=== PATIENT | female | born 1985 | race Caucasian/White ===

== ENCOUNTER 2016-09-28 22:34 | Emergency (ER) | payer MEDICAID ==
[~2016-09-28] VITALS: Ht 160 cm; Wt 68.0 kg
[~2016-09-28 22:34] MED LIST: CALC600T5 PO; CALCIUM BU; FERR240T9 PO; LORA-441 PO; PREN1TAB17 PO
[2016-09-28 22:39] VITALS: Ht 160 cm; Wt 68.0 kg
[2016-09-28] MEDS ORDERED: IBUP400T22 PO (23:39)
--- NOTE | 2016-09-28 23:50 | ERA ---
ER Documentation Chief Complaint Date/Time DATE: 09/28/16 TIME: 23:45 Chief Complaint chest wall pain radaiting to right shoulder x 2 months HPI This is an otherwise healthy 31-year-old Pakistani-speaking female presenting with 2-3 months of right shoulder pain that is worse with movement. Patient describes the pain as dull and feels like there is "air underneath the shoulder ". Denies relation to food, abdominal pain, shortness of breath, chest pain, diaphoresis, similar symptoms in the past, aggravating or relieving factors or trauma. 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 ROS All systems reviewed and are negative except as per history of present illness. Medications Home Meds Active Scripts Ibuprofen* (Motrin*) 400 Mg Tab, 400 MG PO Q6, #30 TAB Prov:NISHI GOTTLIEB PA-C 09/28/16 Lorazepam* (Ativan*) 0.5 Mg Tablet, 0.5 MG PO Q8H Y for ANXIETY, #6 TAB Prov:KANA DAHL DO 12/16/15 Reported Medications [Calcium] No Conflict Check, BU DAILY 09/20/13 Ferrous Gluconate (Iron) 1 Tab Tablet, 1 TAB PO DAILY 09/20/13 Vit-Iron Fumarate-FA ( Tablet) 1 Each Tablet, 1 EACH PO DAILY 09/20/13 Calcium Carbonate (CALCIUM) 600 Mg Tablet, 600 MG PO DAILY 06/04/13 Allergies Allergies: Coded Allergies: No Known Allergy (Unverified , 09/20/13) PMhx/Soc Medical and Surgical Hx: pt denies Medical Hx, pt denies Surgical Hx Hx Alcohol Use: No Hx Substance Use: No Hx Tobacco Use: No Smoking Status: Never smoker Physical Exam Vitals Vital Signs Date Time Temp Pulse Resp B/P Pulse Ox O2 Delivery O2 Flow Rate FiO2 09/28/16 22:39 98.2 88 20 126/70 100 Physical Exam Const: Well-appearing 31-year-old female in no acute distress Head: Atraumatic Eyes: Normal Conjunctiva ENT: Normal External Ears, Nose and Mouth. Neck: Full range of motion..~ No meningismus. Resp: Clear to auscultation bilaterally Cardio: Regular rate and rhythm, no murmurs Abd: Soft, non tender, non distended. Normal bowel sounds Skin: No petechiae or rashes Back: No midline or flank tenderness Ext: Negative crossover sign. No impingement. Negative empty can test sign. No pain reproduced with range of motion in any direction. Full range of motion in all directions. No cyanosis, or edema no step-off noted at the AC joint. Neur: Awake and alert Psych: Normal Mood and Affect Procedures/MDM This is a 31-year-old female presenting with a chief complaint of right shoulder pain as described in the history and physical examination. Patient is denying any aggravating or alleviating factors. Physical exam was unremarkable. Range of motion is full and no pain was elicited. ECG was taken to rule out acute coronary syndrome and read by me as good baseline with normal axis, no ST wave depressions or elevations, no T-wave inversions, regular rate and rhythm. The ECG was read by my attending as well as unremarkable with normal sinus rhythm. I presented my case to the attending Dr. Hylton who has agreed with my assessment and plan. The plan will consist of outpatient ibuprofen for possible rotator cuff syndrome. A list of outpatient clinics has been provided so the patient can follow-up with PCP for possible referral to a specialist. At this time I have little suspicion for neurovascular compromise, or bony pathology. Patient's vitals are stable and her current condition is appropriate for discharge. Patient will be discharged with discharge instructions return precautions were Departure Diagnosis: Primary Impression: Rotator cuff syndrome of right shoulder Condition: Stable Patient Instructions: Understanding Rotator Cuff Injuries Referrals: COMMUNITY CLINICS YOU HAVE RECEIVED A MEDICAL SCREENING EXAM AND THE RESULTS INDICATE THAT YOU DO NOT HAVE A CONDITION THAT REQUIRES URGENT TREATMENT IN THE EMERGENCY DEPARTMENT. FURTHER EVALUATION AND TREATMENT OF YOUR CONDITION CAN WAIT UNTIL YOU ARE SEEN IN YOUR DOCTORS OFFICE WITHIN THE NEXT 1-2 DAYS. IT IS YOUR RESPONSIBILITY TO MAKE AN APPOINTMENT FOR FOLOW-UP CARE. IF YOU HAVE A PRIMARY DOCTOR --you should call your primary doctor and schedule an appointment IF YOU DO NOT HAVE A PRIMARY DOCTOR YOU CAN CALL OUR PHYSICIAN REFERRAL HOTLINE AT IF YOU CAN NOT AFFORD TO SEE A PHYSICIAN YOU CAN CHOSE FROM THE FOLLOWING [facility] [address] [facility] [address] [facility]. [facility] [address] [facility] [address] [facility]. [facility] [address] [facility]. [facility] [address] Additional Instructions: Follow up with your PCP within the next 1-3 days for a more thorough evaluation and a possible referral to a specialist. Return the the emergency department immediately if symptoms worsen or change. If you have any questions regarding medications, ask your pharmacist or us before you leave. If any adverse reactions occur while taking your medications, discontinue the treatment and return to the emergency department immediately. Take your medications as directed, and complete the entire course of treatment. NISHI GOTTLIEB PA-C Sep 28, 2016 23:50
[2016-09-29 00:31] VITALS: BP 116/60; PULSE 64; RESP 17; TEMP 98.4
== END 2016-09-29 00:32 | disposition home or self-care (01) ==
LOC: FTE 22:34
DX: M75.101 Unspecified rotator cuff tear or rupture of right shoulder, not specified as traumatic (principal)
CPT/HCPCS: 93005; Z7502; 99283

== ENCOUNTER 2018-03-06 19:55 | Emergency (ER) | END 2018-03-06 20:59 | disposition home or self-care (01) ==

== ENCOUNTER 2018-07-25 11:49 | Emergency (ER) | payer MEDICAID ==
[~2018-07-25] VITALS: Ht 162.6 cm; Wt 64.8 kg
[~2018-07-25 11:49] MED LIST changes: +CEPH-443 PO; +IBUP-1561 PO; +PHEN-538 PO
[2018-07-25 11:53] VITALS: BP 145/85; PULSE 64; RESP 17; Ht 162.6 cm; Wt 64.8 kg
[2018-07-25] MEDS ORDERED: ORA20G7 BUCCAL (12:45)
[2018-07-25] MEDS ORDERED: AMOX500C2 PO (12:46)
--- NOTE | 2018-07-25 12:49 | ERD ---
ER Documentation Chief Complaint Chief Complaint MOUTH BLISTERES AND INTERMITTANT FEVER HPI Patient is a 33-year-old female who who presents the ER for concerns of mouth blisters. Patient states she had dental work approximately 15 days ago. She states she had her right upper molar repaired. She states that sometimes notes that she has intermittent ulcers inside of her mouth. She denies any fevers. She denies any nausea, vomiting, drooling, trismus or hyperextension of her neck. Denies any dental pain. ROS All systems reviewed and are negative except as per history of present illness. Medications Home Meds Active Scripts Amoxicillin* (Amoxicillin*) 500 Mg Cap, 500 MG PO BID for 7 Days, CAP Prov:MERVIN STARKEY PA-C 07/25/18 Benzocaine* (Orajel Maximum*) 1 Applic Gel, 1 APPLIC BUCCAL TID for 7 Days, #1 TUB Prov:MERVIN STARKEY PA-C 07/25/18 Phenazopyridine Hcl* (Pyridium*) 200 Mg Tab, 200 MG PO TID PRN for URINARY PAIN, #6 TAB Prov:AMARJIT MEADE MD 03/06/18 Cephalexin* (Keflex*) 500 Mg Capsule, 500 MG PO QID for 5 Days, CAP Prov:AMARJIT MEADE MD 03/06/18 Ibuprofen* (Motrin*) 400 Mg Tab, 400 MG PO Q6, #30 TAB Prov:NISHI GOTTLIEB PA-C 09/28/16 Lorazepam* (Ativan*) 0.5 Mg Tablet, 0.5 MG PO Q8H PRN for ANXIETY, #6 TAB Prov:KANA DAHL DO 12/16/15 Reported Medications [Calcium] No Conflict Check, BU DAILY 09/20/13 Ferrous Gluconate (Iron) 1 Tab Tablet, 1 TAB PO DAILY 09/20/13 Vit-Iron Fumarate-FA ( Tablet) 1 Each Tablet, 1 EACH PO DAILY 09/20/13 Calcium Carbonate (CALCIUM) 600 Mg Tablet, 600 MG PO DAILY 06/04/13 Allergies Allergies: Coded Allergies: No Known Allergy (Unverified , 09/20/13) PMhx/Soc Hx Miscellaneous Medical Probl: Yes (GERD) Hx Alcohol Use: No Hx Substance Use: No Hx Tobacco Use: No FmHx Family History: No diabetes Physical Exam Vitals Vital Signs Date Temp Pulse Resp B/P (MAP) Pulse Ox O2 O2 Flow FiO2 Time Delivery Rate 07/25/18 98.6 64 17 145/85 100 11:53 (105) Physical Exam GENERAL: Well-developed, well-nourished female. Appears in no acute distress. Speaking in full sentences HEAD: Normocephalic, atraumatic. EYES: Pupils are equally reactive bilaterally. EOMs grossly intact. No conjunctival erythema. ENT: Moist mucous membranes. No uvula deviation. No kissing tonsils. Numerous aphthous ulcers noted in the inner lower lip and upper lip. NECK: Supple. No meningismus. Normal range of motion of the neck. No cervical lymphadenopathy noted. LUNG: Clear to auscultation bilaterally. No rhonchi, wheezing, rales or coarse b reath sounds. HEART: Regular rate and rhythm. No murmurs, rubs or gallops. EXTREMITIES: Equal pulses bilaterally. No peripheral clubbing, cyanosis or edema. No unilateral leg swelling. NEUROLOGIC: Alert and oriented. Moving all four extremities without any difficulty. Normal speech. Steady gait. SKIN: Normal color. Warm and dry. No rashes or lesions. Procedures/MDM MEDICAL DECISION MAKING: This is a 33-year-old female presents the ER for concerns of inner oral blisters after recent dental work.. Vital signs were reviewed. Patient was afebrile. Patient was not hypoxic. The patient did not have trismus, muffled voice, uvula deviation, unilateral tonsillar swelling, or drooling. No signs of neck swelling or hyperextension of the neck noted. Findings are consistent with aphthous ulcers. Origin was advised. Given that patient denied any antibiotics after dental work trial of the device will be prescribed as well as patient is concerned she has a bacterial infection. Low suspicion for epiglottitis, strep pharyngitis, peritonsillar abscess, retropharyngeal abscess, River's angina, tooth fracture, bleeding dental socket, periodontal abscess, ulcerative gingivitis, dental trauma. Patient was nontoxic, non-ill appearing prior to discharge. PRESCRIPTIONS: Amoxicillin, Orajel DISCHARGE: At this time, patient is stable for discharge and outpatient management. I have instructed the patient to see a dentist today or tomorrow. I have instructed the patient to promptly return to the ER at any time for any new or worsening symptoms including increased pain, fever, swelling, neck swelling, neck stiffness, drooling or difficulty breathing. The patient and/or family expressed understanding of and agreement with this plan. All questions were answered. Home care instructions were provided. Disclaimer: Inadvertent spelling and grammatical errors are likely due to EHR/dictation software use and do not reflect on the overall quality of patient care. Also, please note that the electronic time recorded on this note does not necessarily reflect the actual time of the patient encounter. Departure Diagnosis: Primary Impression: Aphthous ulcer Condition: Fair Patient Instructions: Aphthous Ulcer Additional Instructions: Llame al doctor MAANA y yodit ravi BETITO PARA DENTRO DE 1-2 METZ.Dgale a la secretaria que nosotros le instruimos hacer esta betito.Avise o llame si cano condicin se empeora antes de la betito. Regresa aqui si peor o no mejor. MERVIN STARKEY PA-C Jul 25, 2018 12:49
== END 2018-07-25 13:00 | disposition home or self-care (01) ==
LOC: FTE 11:49
DX: K12.0 Recurrent oral aphthae (principal)
CPT/HCPCS: 99283